=== PATIENT | male | born 1995 | race Hispanic/Latino ===

== ENCOUNTER 2021-10-31 15:09 | Emergency (ER) | payer SELFPAY ==
--- NOTE | 2021-10-31 15:45 | ER ---
Nurse's Notes [facility] Name: Lyle Helm Age: 26 yrs Sex: Male : 1995 Arrival Date: 10/31/2021 Time: 15:12 Bed 20 Private MD: Diagnosis: Exposure to excessive natural heat, initial encounter;Hyperglycemia, unspecified Presentation: 10/31 15:13 Chief complaint: Patient states: Working today - extremely sweaty. Reports getting ld1 dizzy, and nauseous. Coronavirus screen: At this time, the client does not indicate any symptoms associated with coronavirus-19. Ebola Screen: No symptoms or risks identified at this time. Initial Sepsis Screen: Does the patient meet any 2 criteria? No. Patient's initial sepsis screen is negative. Does the patient have a suspected source of infection? No. Patient's initial sepsis screen is negative. Risk Assessment: Do you want to hurt yourself or someone else? Patient reports no desire to harm self or others. Onset of symptoms was October 31, 2021. 15:13 Method Of Arrival: EMS: [facility] ld1 15:13 Acuity: DIANA 3 ld1 Triage Assessment: 15:16 General: Appears in no apparent distress. comfortable, Behavior is calm, cooperative, ld1 appropriate for age. Pain: Denies pain. EENT: No signs and/or symptoms were reported regarding the EENT system. Neuro: Level of Consciousness is awake, alert, obeys commands, Oriented to person, place, time, situation, Reports dizziness. Cardiovascular: Capillary refill < 3 seconds Patient's skin is warm and dry. Respiratory: Airway is patent Respiratory effort is even, unlabored. GI: Abdomen is flat, non-distended. : No signs and/or symptoms were reported regarding the genitourinary system. Derm: No signs and/or symptoms reported regarding the dermatologic system. Musculoskeletal: No signs and/or symptoms reported regarding the musculoskeletal system. Historical: - Allergies: 15:16 No Known Allergies; ld1 - Home Meds: 15:16 metformin 500 mg/5 mL Oral serr 5 mL once daily [Active]; Jardiance 10 mg oral tab 1 ld1 tab once daily [Active]; glipizide 5 mg Oral tr24 1 tab once daily [Active]; - PMHx: 15:16 Diabetes mellitus; ld1 - PSHx: 15:16 None; ld1 - Immunization history:: Adult Immunizations up to date, Client reports receiving the 2nd dose of the Covid vaccine. - Social history:: Smoking status: Patient denies any tobacco usage or history of. Patient/guardian denies using alcohol. Vital Signs: 15:13 BP 124 / 82; Pulse 112; Resp 18; Temp 97.5(TE); Pulse Ox 100% on R/A; Weight 86.18 kg; ld1 Height 5 ft. 11 in. (180.34 cm); Pain 0/10; 15:13 Body Mass Index 26.50 (86.18 kg, 180.34 cm) ld1 ED Course: 15:12 Patient arrived in ED. rg4 15:16 Triage completed. ld1 15:16 [facility]C [facility] kb 15:16 Marco Gary DO is Attending Physician. kb 15:16 Arm band placed on right wrist. ld1 Administered Medications: No medications were administered Outcome: 15:44 Patient left the ED. ld1 15:50 Discharge ordered by MD. kb 15:52 Patient left the ED. kb Signatures: Joseline Jolley FNP-C FNP-Nicole Mckeon rg4 Vania Kirk, RN RN ld1
--- NOTE | 2021-10-31 15:51 | EDPHYS ---
Physician Documentation [facility] Name: Lyle Helm Age: 26 yrs Sex: Male : 1995 Arrival Date: 10/31/2021 Time: 15:12 Bed 20 Private MD: ED Physician Marco Gary Historical: - Allergies: 10/31 15:16 No Known Allergies; ld1 - Home Meds: 15:16 metformin 500 mg/5 mL Oral serr 5 mL once daily [Active]; Jardiance 10 mg oral tab 1 ld1 tab once daily [Active]; glipizide 5 mg Oral tr24 1 tab once daily [Active]; - PMHx: 15:16 Diabetes mellitus; ld1 - PSHx: 15:16 None; ld1 - Immunization history:: Adult Immunizations up to date, Client reports receiving the 2nd dose of the Covid vaccine. - Social history:: Smoking status: Patient denies any tobacco usage or history of. Patient/guardian denies using alcohol. Vital Signs: 15:13 BP 124 / 82; Pulse 112; Resp 18; Temp 97.5(TE); Pulse Ox 100% on R/A; Weight 86.18 kg; ld1 Height 5 ft. 11 in. (180.34 cm); Pain 0/10; 15:13 Body Mass Index 26.50 (86.18 kg, 180.34 cm) ld1 MDM: 15:16 Patient medically screened. 10/31 15:18 Order name: CBC with Diff 10/31 15:18 Order name: Basic Metabolic Panel 10/31 15:18 Order name: IV Start 10/31 15:18 Order name: CPK 10/31 15:18 Order name: Acetone, Serum 10/31 15:18 Order name: Urine Dipstick-Ancillary (obtain specimen) 10/31 15:18 Order name: Orthostatics Administered Medications: No medications were administered Disposition Summary: 10/31/21 15:50 Discharge Ordered Location: Home kb Condition: Stable(10/31/21 15:50) kb Diagnosis - Exposure to excessive natural heat, initial encounter(10/31/21 15:50) kb - Hyperglycemia, unspecified(10/31/21 15:50) kb Followup: kb - With: Emergency Department - When: As needed - Reason: Worsening of condition Followup: kb - With: Private Physician - When: 2 - 3 days - Reason: Recheck today's complaints, Continuance of care, Re-evaluation by your physician Discharge Instructions: - Discharge Summary Sheet kb - Hyperglycemia, [id number] kb - Preventing Heat Exhaustion, Adult kb Forms: - Medication Reconciliation Form kb - Thank You Letter kb - Antibiotic Education kb - Prescription Opioid Use kb Signatures: Dispatcher [employer] EDJoseline Han, KHRIS-C Vania Calderon, RN RN ld1 Corrections: (The following items were deleted from the chart) 15:49 15:44 post triage evaluation and consult ld1 kb 15:49 15:44 unknown ld1 kb 15:49 15:49 Stable kb kb 15:49 15:49 Hyperglycemia, unspecified kb kb 15:49 15:49 Exposure to excessive natural heat, initial encounter kb kb
[2021-10-31 15:57] VITALS: BP 124/82; TEMP 97.5; O2SAT 100
== END 2021-10-31 15:52 | disposition home or self-care (01) ==
LOC: ER 15:09
DX: E11.65 Type 2 diabetes mellitus with hyperglycemia (principal); X30.XXXA Exposure to excessive natural heat, initial encounter